=== PATIENT | female | born 1980 | race Caucasian/White ===

== ENCOUNTER 2017-04-24 16:17 | Emergency (ER) | payer OTHER ==
[~2017-04-24] VITALS: Ht 157.5 cm; Wt 39.0 kg
[2017-04-24 16:50] LABS: HEMATOCRIT 35.9 % (36.0-46.0); HEMOGLOBIN 12.6 G/DL (11.9-15.5); MCH 33.2 PG (29.0-34.0); MCHC 35.1 G/DL (30.0-36.0); MCV 94.5 FL (83-99); PLATELET COUNT 306 K/uL (156-360); RBC DIS.WIDTH-CV 12.4 % (11.8-14.6); RBC DIS.WIDTH-SD 43.1 % (39-53)
[2017-04-24 16:59] LABS: CHLORIDE 98 mEq/L (99-109); D-DIMER ELISA < 150.00 ng/mLDDU (<230); POTASSIUM 3.9 mEq/L (3.7-5.4); SODIUM 140 mEq/L (136-147)
[2017-04-24 17:01] LABS: GLUCOSE 99 mg/dL (70-99)
[2017-04-24 17:05] LABS: CREATININE 0.6 mg/dL (0.6-1.3); GFR ESTIMATE (CALCULATED) > 59 mL/min/
[2017-04-24 17:06] LABS: UREA NITROGEN (BUN) 16 mg/dL (9-23)
[2017-04-24 17:13] LABS: TROP-I INTERPRETATION NEGATIVE; TROPONIN-I < 0.01 ng/mL (0.0-0.30)
[2017-04-24] MEDS ORDERED: ATARAX,VISTARIL25 MG PO (17:22)
[2017-04-24 18:01] VITALS: BP 146/109
== END 2017-04-24 18:02 | disposition home or self-care (01) ==
LOC: EME 16:17
PROVIDERS: Emergency Medicine
DX: F41.0 Panic disorder [episodic paroxysmal anxiety] (principal); R06.02 Shortness of breath; F17.200 Nicotine dependence, unspecified, uncomplicated; F32.9 Major depressive disorder, single episode, unspecified; Z85.71 Personal history of Hodgkin lymphoma
CPT/HCPCS: 80048; 84484; 85027; 85379; 99281; 99284